=== PATIENT | female | born 1995 ===

== ENCOUNTER 2018-05-23 08:12 | Emergency (ER) | payer OTHER ==
--- NOTE | 2018-05-23 08:36 | UC ---
Eye Complaint HPI - HPI Summary HPI Summary: felt irritation in OD yesterday, removed contact lenses and no better. today R eye very red, watery, painful. no drainage. diff to describe pain but feels "papercut" in eye - History of Current Complaint Chief Complaint: UCEye Stated Complaint: EYE COMPLAINT Time Seen by Provider: 05/23/18 08:34 Hx Obtained From: Patient Hx Last Menstrual Period: 05/16/18 ?: No Onset/Duration: Sudden Onset Timing: Constant Severity Initially: Mild Severity Currently: Moderate Pain Intensity: 8 Location of Injury: Conjunctiva Character: Sharp, Foreign Body Sensation Aggravating Factor(s): Light, Blinking Alleviating Factor(s): Nothing Associated Signs And Symptoms: Positive: Photophobia, Drainage (Clear) - Allergies/Home Medications Allergies/Adverse Reactions: Allergies Allergy/AdvReac Type Severity Reaction Status Date / Time No Known Allergies Allergy Verified 05/23/18 08:24 PMH/Surg Hx/FS Hx/Imm Hx Previously Healthy: Yes - Surgical History Surgical History: Yes Surgery Procedure, Year, and Place: cyst removal from arm - Family History Known Family History: Positive: None Negative: Cardiac Disease, Diabetes - Social History Occupation: Student Lives: With Family Alcohol Use: Occasionally Substance Use Type: None Smoking Status (MU): Never Smoked Tobacco Review of Systems All Other Systems Reviewed And Are Negative: Yes Constitutional: Positive: Negative. Negative: Fever, Chills Skin: Positive: Negative. Negative: Rash Eyes: Positive: Drainage - R side only, Eye Redness, Photophobia ENT: Positive: Negative Respiratory: Positive: Negative Cardiovascular: Positive: Negative Neurological: Positive: Negative. Negative: Headache Psychological: Positive: Negative Is Patient Immunocompromised?: No Physical Exam Triage Information Reviewed: Yes Appearance: Well-Appearing, Well-Nourished Vital Signs: Initial Vital Signs Temp 98.9 F 05/23/18 08:19 Pulse 76 05/23/18 08:19 Resp 18 05/23/18 08:19 BP 110/69 05/23/18 08:19 Pulse Ox 97 05/23/18 08:19 Vital Signs Reviewed: Yes Eyes: Positive: Conjunctiva Inflamed - R eye red, tearing, upper lid slightly swollen ENT Exam: Normal Neck exam: Normal Respiratory Exam: Normal Cardiovascular Exam: Normal Musculoskeletal Exam: Normal Neurological Exam: Normal Psychological Exam: Normal Skin Exam: Normal Procedures - Eye Procedure Right Alcaine Drops Administered: Yes Eye Irrigated w/ Saline (ccs): 10 - no FB or CA detected after fluorsceine stain Eye Complaint Course/Dx - Differential Dx/Diagnosis Differential Diagnosis/HQI/PQRI: Conjunctivitis, Corneal Abrasion, Foreign Body Provider Diagnosis: Chemosis of right conjunctiva Discharge - Sign-Out/Discharge Documenting (check all that apply): Patient Departure All imaging exams completed and their final reports reviewed: No Studies - Discharge Plan Condition: Good Disposition: HOME Prescriptions: Ofloxacin 0.3% (Eye Drop) [Ocuflox OPTH 0.3% (Eye Drop)] 1 - 2 drop RIGHT EYE Q4H #1 btl Patient Education Materials: Eye Pain (ED) Referrals: No Primary Care Phys,NOPCP [Primary Care Provider] - Bayron Garcia MD [Medical Doctor] - 2 Days (if no better) Additional Instructions: do not wear contact lenses for 1 week. use eye drops sa prescribed see Dr. Garcia (eye doctor) if no better 2-3 days if pain or symptoms worsen - return here or to the ER - Billing Disposition and Condition Condition: GOOD Disposition: Home - Attestation Statements Provider Attestation: I was available for consult. This patient was seen by the ALLIE. The patient was not presented to , seen by or examined by sc -Antonio Zamora MD Addendum entered and electronically signed by Jp Lujan NP 05/23/18 12: 25:
[2018-05-23] MEDS ORDERED: Fluorescein Sodium TOPICAL* 1 MG TEST STRIP OPHTHALMIC ONE (09:11)
[2018-05-23] MEDS ORDERED: Tetracaine 0.5% OPTH.SOL 15ML* BTL RIGHT EYE ONE (09:52)
== END 2018-05-23 09:47 | disposition home or self-care (01) ==
LOC: UCEAST 08:12
DX: H11.421 Conjunctival edema, right eye (principal)
CPT/HCPCS: 99202; A9270-GY; G0463